=== PATIENT | male | born 1985 | race Hispanic/Latino ===

== ENCOUNTER 2017-10-23 14:23 | Emergency (ER) | payer SELFPAY ==
--- NOTE | 2017-10-23 14:35 | Emergency Department Report ---
History of Present Illness - General Stated Complaint: OVERDOSE Time Seen by Provider: 10/23/17 14:23 Source: patient, EMS Mode of arrival: Stretcher Limitations: No Limitations - History of Present Illness Initial Comments: Patient is 32-year-old male presents to emergency room with an overdose. History per EMS, patient was found in a [employer] lot asleep in his car. Patient was apneic and intubated by EMS then EMS gave Narcan. Patient is currently following commands. Patient extubated. After extubation: Patient answered all questions appropriately. Patient states he was using meth , Xanax and opiates and most taken too many. Patient doesn't recall falling asleep or being picked up by EMS. Patient denies any physical complaints. Patient denies chest pain shortness of breath. Patient states he is not having any trouble breathing. Patient denies abdominal pain. MD Complaint: accidental overdose -: Sudden Context: Accidental Overdose: wanted to get high, uncertain what happened Treatments Prior to Arrival: oxygen, narcan, IV fluids, other (intubation) - Related Data Allergies Allergy/AdvReac Type Severity Reaction Status Date / Time No Known Allergies Allergy Unverified 10/23/17 15:06 ED Review of Systems ROS: Stated complaint: OVERDOSE Other details as noted in HPI Constitutional: denies: chills, fever Eyes: denies: eye pain, eye discharge, vision change ENT: denies: ear pain, throat pain Respiratory: denies: cough, shortness of breath, wheezing Cardiovascular: denies: chest pain, palpitations Endocrine: no symptoms reported Gastrointestinal: denies: abdominal pain, nausea, diarrhea Genitourinary: denies: urgency, dysuria Musculoskeletal: denies: back pain, joint swelling, arthralgia Skin: denies: rash, lesions Neurological: denies: headache, weakness, paresthesias Psychiatric: denies: anxiety, depression Hematological/Lymphatic: denies: easy bleeding, easy bruising ED Past Medical Hx - Past Medical History Previous Medical History?: Yes Hx Seizures: Yes - Surgical History Past Surgical History?: No - Family History Family history: no significant - Social History Smoking Status: Never Smoker Substance Use Type: Methamphetamines, Other (patient states he uses methamphetamines, Xanax, opiates) ED Physical Exam - General General appearance: alert, in no apparent distress - Head Head exam: Present: atraumatic, normocephalic - Eye Eye exam: Present: normal appearance - ENT ENT exam: Present: mucous membranes moist - Neck Neck exam: Present: normal inspection - Respiratory Respiratory exam: Present: normal lung sounds bilaterally. Absent: respiratory distress - Cardiovascular Cardiovascular Exam: Present: regular rate, normal rhythm. Absent: systolic murmur, diastolic murmur, rubs, gallop - GI/Abdominal GI/Abdominal exam: Present: soft, normal bowel sounds - Rectal Rectal exam: Present: deferred - Extremities Exam Extremities exam: Present: normal inspection - Back Exam Back exam: Present: normal inspection - Neurological Exam Neurological exam: Present: alert, oriented X3 - Psychiatric Psychiatric exam: Present: normal affect, normal mood - Skin Skin exam: Present: warm, dry, intact, normal color. Absent: rash ED Course Vital Signs 10/23/17 14:24 Temperature 98.1 F Pulse Rate 74 Respiratory 14 Rate Blood Pressure 123/71 O2 Sat by Pulse 98 Oximetry - Reevaluation(s) Reevaluation #1: Patient following commands while intubated. Per EMS patient was intubated and then given Narcan. Patient breathing over the vent. will extubate patient and monitor patient 10/23/17 14:20 Reevaluation #2: Patient stable. patient answering questions appropriately. 10/23/17 14:40 Reevaluation #3: Patient is stable at this time. Patient is resting comfortably. Vital signs stable 10/23/17 16:09 - Consultations Consultation #1: Hospitalist consulted for admission. Hospitalist to admit patient. Dr travis to assume care. 10/23/17 16:11 ED Medical Decision Making - Lab Data Result diagrams: 10/23/17 15:16 10/23/17 15:16 - Medical Decision Making Patient is a 32-year-old male that was admitted to the ER for overdose. Patient was initially intubated by EMS and extubated on arrival. Patient is stable at this time however patient will be admitted to the hospitalist service for further evaluation and treatment and monitoring. - Differential Diagnosis od. ams. hypoxia Critical Care Time: Yes Critical care attestation.: If time is entered above; I have spent that time in minutes in the direct care of this critically ill patient, excluding procedure time. Critical Care Time: 35 minutes for cc time ED Disposition Clinical Impression: Overdose Disposition: DC-[id number] OP ADMIT IP TO THIS HOSP Is pt being admited?: Yes Does the pt Need Aspirin: No Condition: Critical Time of Disposition: 16:10
[2017-10-23] MEDS ORDERED: NACL 0.9% 1000 ML 1,000 ML IV ONE (14:39)
[2017-10-23] MEDS ORDERED: ZOFRAN ONE (15:05)
[2017-10-23] MEDS ORDERED: ZOFRAN IV ONE (15:06)
[2017-10-23 15:29] LABS: Basophils % (Auto) 0.1 % (0.0-1.8); Eosinophils # (Auto) 0.1 K/mm3 (0.0-0.4); Eosinophils % (Auto) 0.9 % (0.0-4.3); Hematocrit 43.5 % (35.5-45.6); Hemoglobin 14.1 gm/dl (11.8-15.2); Lymphocytes # (Auto) 0.8 K/mm3 (1.2-5.4); Lymphocytes % (Auto) 6.1 % (13.4-35.0); Mean Corpuscular HGB Conc 33 % (32-34); Mean Corpuscular Hemoglobin 28 pg (28-32); Mean Corpuscular Volume 85 fl (84-94); Monocytes # (Auto) 0.8 K/mm3 (0.0-0.8); Monocytes % (Auto) 6.1 % (0.0-7.3); Platelet Count 208 K/mm3 (140-440); Red Blood Count 5.09 M/mm3 (3.65-5.03); Red Cell Distribution Width 13.7 % (13.2-15.2)
[2017-10-23 15:59] LABS: Alanine Aminotransferase 20 units/L (7-56); Albumin 4.1 g/dL (3.9-5); BUN/Creatinine Ratio 9; Blood Urea Nitrogen 9 mg/dL (9-20); Calcium 8.4 mg/dL (8.4-10.2); Hemolysis Index 13
--- NOTE | 2017-10-23 16:27 | History and Physical Report ---
History of Present Illness Chief complaint: I was taking meth...I just took too much History of present illness: 32 YO Male with - History of Present Illness Initial Comments: Patient is 32-year-old male presents to emergency room with an overdose. History per EMS, patient was found in a [employer] lot asleep in his car. Patient was apneic and intubated by EMS then EMS gave Narcan. Patient is currently following commands. Patient extubated. After extubation: Patient answered all questions appropriately. Patient states he was using meth , Xanax and opiates and most taken too many. Patient doesn't recall falling asleep or being picked up by EMS. Patient denies any physical complaints. Patient denies chest pain shortness of breath. Patient states he is not having any trouble breathing. Patient denies abdominal pain. MD Complaint: accidental overdose -: Sudden Context: Accidental Overdose: wanted to get high, uncertain what happened Treatments Prior to Arrival: oxygen, narcan, IV fluids, other (intubation) - Related Data Allergies Allergy/AdvReac Type Severity Reaction Status Date / Time No Known Allergies Allergy Unverified 10/23/17 15:06 ED Review of Systems ROS: Stated complaint: OVERDOSE Other details as noted in HPI Constitutional: denies: chills, fever Eyes: denies: eye pain, eye discharge, vision change ENT: denies: ear pain, throat pain Respiratory: denies: cough, shortness of breath, wheezing Cardiovascular: denies: chest pain, palpitations Endocrine: no symptoms reported Gastrointestinal: denies: abdominal pain, nausea, diarrhea Genitourinary: denies: urgency, dysuria Musculoskeletal: denies: back pain, joint swelling, arthralgia Skin: denies: rash, lesions Neurological: denies: headache, weakness, paresthesias Psychiatric: denies: anxiety, depression Hematological/Lymphatic: denies: easy bleeding, easy bruising ED Past Medical Hx - Past Medical History Previous Medical History?: Yes Hx Seizures: Yes - Surgical History Past Surgical History?: No - Family History Family history: no significant - Social History Smoking Status: Never Smoker Substance Use Type: Methamphetamines, Other (patient states he uses methamphetamines, Xanax, opiates) ED Physical Exam Medications and Allergies Allergies Allergy/AdvReac Type Severity Reaction Status Date / Time No Known Allergies Allergy Unverified 10/23/17 15:06 Home Medications Medication Instructions Recorded Confirmed Last Taken Type No Known Home Medications [No 10/23/17 10/23/17 Unknown History Reported Home Medications] Exam - Constitutional Vitals: Temp Pulse Resp BP Pulse Ox 98.1 F 74 14 123/71 98 10/23/17 14:24 10/23/17 14:24 10/23/17 14:24 10/23/17 14:24 10/23/17 14:24 Results - Labs CBC & Chem 7: 10/23/17 15:16 10/23/17 15:16 Labs: Abnormal lab results 10/23/17 10/23/17 Range/Units 15:16 15:16 WBC 13.6 H (4.5-11.0) K/mm3 RBC 5.09 H (3.65-5.03) M/mm3 Lymph % (Auto) 6.1 L (13.4-35.0) % Lymph # 0.8 L (1.2-5.4) K/mm3 Seg Neutrophils % 86.8 H (40.0-70.0) % Seg Neutrophils # 11.8 H (1.8-7.7) K/mm3 Glucose 168 H (75-100) mg/dL Total Protein 6.1 L (6.3-8.2) g/dL
[2017-10-23 18:51] VITALS: BP 116/77
[2017-10-23 22:46] LABS: Bilirubin,Urine NEG (Negative); Blood,Urine NEG (Negative); Color,Urine Yellow (Yellow); Mucus,Urine FEW /HPF; Protein,Urine <15 mg/dL mg/dL (Negative); Urobilinogen,Urine < 2.0 mg/dL (<2.0)
[2017-10-23 23:04] LABS: Amphetamine Screen,Urine PRESUMPTIVE NEGATIVE; Cannabinoid Screen,Urine PRESUMPTIVE NEGATIVE; Cocaine Screen,Urine PRESUMPTIVE NEGATIVE; Methadone Screen,Urine PRESUMPTIVE NEGATIVE; Opiate Screen,Urine PRESUMPTIVE NEGATIVE
[2017-10-23 23:34] LABS: Benzodiazepines Screen,Urine PRESUMPTIVE POSITIVE
== END 2017-10-24 00:31 | disposition admitted as inpatient to this hospital (09) ==
LOC: ED 14:23
DX: T42.4X1A Poisoning by benzodiazepines, accidental (unintentional), initial encounter (principal); T40.601A Poisoning by unspecified narcotics, accidental (unintentional), initial encounter; Y92.810 Car as the place of occurrence of the external cause; F15.90 Other stimulant use, unspecified, uncomplicated
CPT/HCPCS: 36415; 80053; 80307; 81001; 85025; 96374; 99284; J2405; J7030